=== PATIENT | male | born 1955 | race Caucasian/White ===

== ENCOUNTER → 2019-10-16 20:32 | Outpatient (CLI) | payer MEDICARE, OTHER, SELFPAY | PROVIDERS: Family Provider Nurse Practitioner Primary Care; PCP Nurse Practitioner Primary Care; Referring Provider Nurse Practitioner Family; Visit Provider Nurse Practitioner Family | DX: G47.33 Obstructive sleep apnea (adult) (pediatric) (principal) | CPT/HCPCS: 95811 ==

== ENCOUNTER → 2019-10-24 15:53 | Outpatient (CLI) | payer MEDICARE, OTHER, SELFPAY ==
[2017-02-20 20:55] VITALS: BMI 29.9
[2019-10-24 16:15] LABS: Absolute Lymphocyte Count 1.87 X10^3/uL (0.83-4.51); Absolute Neutrophil Count 4.2 X10^3/uL (2.0-7.7); Basophil# 0.04 X10^3/uL; Basophil% 0.6 % (0-1); Eosinophils% 2.9 % (0-5); Hematocrit 53.2 % (40-54); Hemoglobin 17.3 g/dL (13.0-16.5); Lymphocyte # 1.87 X10^3/ul (4.0); Lymphocyte % 27.3 % (19-41); Mean Corp Hgb Conc 32.5 g/dL (32-36); Mean Corpuscular Hgb 29.8 pg (27.0-32.0); Mean Corpuscular Volume 91.7 fL (80-94); Mean Platelet Vol. 9.2 fl (6.2-12.0); Monocyte# 0.56 X10^3/uL; Monocyte% 8.2 % (0-10); NRBC Flagged by Analyzer 0 % (0-5); Neutrophil # 4.15 X10^3/uL (2.7-7.7); Neutrophil % 60.7 % (47-70); Platelet Count 236 K/mm3 (150-450); RBC Distribution Width SD 47.3 fl (35.1-43.9); White Blood Count 6.8 K/mm3 (4.4-11.0)
== END ==
PROVIDERS: Family Provider Nurse Practitioner Primary Care; PCP Nurse Practitioner Primary Care; Referring Provider Nurse Practitioner Family; Visit Provider Nurse Practitioner Family
DX: R71.8 Other abnormality of red blood cells (principal); D58.2 Other hemoglobinopathies
CPT/HCPCS: 36415; 85025

== ENCOUNTER 2021-03-03 05:25 | Day surgery (SDC) | payer MEDICARE, SELFPAY ==
[2021-03-03] VITALS (8 sets, daily range): BP systolic 119–195; BP diastolic 74–105; PULSE 52–61; RESP 16; TEMP 35.9–36.4; O2SAT 94–100; BMI 28.8
[2021-03-03] MEDS: Lactated Ringers 1,000 ML 100 ML IV (06:01)
--- NOTE | 2021-03-03 06:03 | PCM.HP.STD ---
Problem List (1) Personal history of colonic polyps Status: Acute History of Present Illness Date of Admission: 03/03/21 The patient is a 66 year old M who has had a personal history of colon polyps. August 2015 and a colonoscopy and 3 polyps removed. He had a hemorrhoidectomy at that time to. He presents now for follow-up colonoscopy. He states that he has not had any symptoms. No abdominal pain. He states that he has had only one episode recently of what he thought was some bright red blood in toilet. He attributes this to hemorrhoids. He actually in 2014 had bleeding from hemorrhoids had a hemorrhoidectomy done by Dr. Rebolledo and then actually had a postoperative bleed. The patient states he is not on any anticoagulants. He has his states that he is well. He states that he is not had COVID-19 of which she is aware Past Medical History Allergies Penicillins [PCN] Allergy (Verified 03/03/21 05:52) Anaphylaxis codeine Adverse Reaction (Verified 03/03/21 05:52) Nausea Home Medications: Ambulatory Orders Medication Instructions Recorded Multivitamin [Daily Multiple 1 each PO BID 09/01/16 Vitamin] Smoking Status: Never smoker Tobacco Use: Non-smoker Review of Systems Constitutional: Denies: Fever Cardiovascular: Denies: Chest Pain Respiratory: Denies: Cough, Shortness of breath at rest Gastrointestinal: Denies: Abdominal Pain, Hematochezia, Melena Endocrine: Denies: Change in Body Habitus VTE Information - Inpt Only VTE Present on Admission: No - Physical Exam Vitals/I&O's: Vital Signs Temp Pulse Resp BP Pulse Ox 97.5 F L 60 16 161/79 H 100 03/03/21 05:53 03/03/21 05:53 03/03/21 05:53 03/03/21 05:53 03/03/21 05:53 Oxygen Delivery Method Room Air Weight: 178 lb 12.718 oz Body Mass Index (BMI) 28.8 General: Alert, Oriented x3, Cooperative, No apparent distress HEENT: Atraumatic Oral: Moist Mucosa Neck: Supple Lungs: Clear to auscultation, Normal air movement Cardiovascular: Regular rate, Regular Rhythm Abdomen: Soft, Non Tender Extremities: No Calf Tenderness Psych/Mental Status: Normal Affect Microbiology Past 72 Hours 03/02/21 08:45 Interface Orders SARS-CoV-2 Antigen (Rapid) - Final Current Medications Lactated Ringer's () 1,000 mls @ 100 mls/hr IV .Q10H TIKI Last Admin: 03/03/21 06:01 Dose: 100 mls/hr Documented by: Assessment/Plan All Active Problems Personal history of colonic polyps (Acute) I recommended the patient a colonoscopy with possible biopsy or polypectomy is indicated. He is aware of the technique, benefit, risk, alternatives. He has had an opportunity to ask and have questions answered. He presents via open access today. We will proceed as noted. Boom Hawk M.D., F.A.C.S.
[2021-03-03] MEDS: Midazolam 5 MG/ML Syringe (06:22)
--- NOTE | 2021-03-03 06:30 | COLBX_PTH ---
PATIENT: MAX LARSON LOC: EN U#:[id number] AGE/SX: 66/M ROOM: RE03/03/[address]: Dr. Boom Hawk MD : 1955 BED: DIS: 03/03/2021 SPEC #: [id number] RECD: 03/03/21 10:36 STATUS: FROY REKapil #: [id number] ROSA: 03/03/21 06:[address]: Boom Hawk DEPT: SURGICAL PATHOLOGY RECD BY: Lashae Tsang ENTERED: 03/03/21 12:59 SP TYPE: COLON BX OTHR DR: Dr. Obed Funez MD Tissues: Cecum, NOS Procedures: Surgery Specimen Level IV HEADER OPERATION: Colonoscopy - open access (MOD) PRE-OP DIAGNOSIS: History colonic polyps TISSUE SUBMITTED: Cecum polyp MICROSCOPIC DIAGNOSIS Cecal polyp, biopsy: Fragments of tubular adenoma. AM:huan 03/04/2021 MICROSCOPIC DESCRIPTION Slides are reviewed. GROSS DESCRIPTION Received in fixative is one container labeled with the patient's name and designated cecal polyp. The specimen consists of one irregular fragment of light montes soft tissue that measures 0.5 x 0.2 x 0.1 cm. The specimen is totally submitted in one cassette. / AM:huan 03/03/21 TC:5 CPT: 12423
--- NOTE | 2021-03-03 06:45 | OP.COLON_ITS ---
Patient Name: Bar Maza Procedure Date: 03/03/2021 6:16 AM Date of : 1955 Age: 66 Procedure: Colonoscopy Indications: High risk colon cancer surveillance: Personal history of colonic polyps Providers: Boom Hawk MD Referring MD: Boom Hawk MD Medicines: Midazolam 3 mg IV, Meperidine 100 mg IV Patient Profile: Last Colonoscopy: August 2015. Complications: No immediate complications. Procedure: Pre-Anesthesia Assessment: - Prior to the procedure, a History and Physical was performed, and patient medications and allergies were reviewed. The patient's tolerance of previous anesthesia was also reviewed. The risks and benefits of the procedure and the sedation options and risks were discussed with the patient. All questions were answered, and informed consent was obtained. Prior Anticoagulants: The patient has taken no previous anticoagulant or antiplatelet agents. ASA Grade Assessment: II - A patient with mild systemic disease. After reviewing the risks and benefits, the patient was deemed in satisfactory condition to undergo the procedure. After I obtained informed consent, the scope was passed under direct vision. Throughout the procedure, the patient's blood pressure, pulse, and oxygen saturations were monitored continuously. The Colonoscope was introduced through the anus and advanced to the cecum, identified by appendiceal orifice and ileocecal valve. The colonoscopy was performed without difficulty. The patient tolerated the procedure well. The quality of the bowel preparation was good. The ileocecal valve and the appendiceal orifice were photographed. Moderate Sedation: Moderate (conscious) sedation was personally administered by the endoscopist. The following parameters were monitored: oxygen saturation, heart rate, blood pressure, and response to care. Total physician intraservice time was 15 minutes. Scope In: 6:26:30 AM Scope Withdrawal Time 0 hours 10 minutes 33 seconds Scope Out: 6:40:04 AM Total Procedure Duration Time 0 hours 13 minutes 34 seconds Findings: The digital rectal exam findings include enlarged prostate. A 6 mm polyp was found in the cecum. The polyp was sessile. The polyp was removed with a hot snare. Resection and retrieval were complete. Multiple diverticula were found in the entire colon. The exam was otherwise without abnormality. Impression: - Enlarged prostate found on digital rectal exam. - One 6 mm polyp in the cecum, removed with a hot snare. Resected and retrieved. - Diverticulosis in the entire examined colon. - The examination was otherwise normal. Recommendation: - Discharge patient to home. - Resume previous diet. - Continue present medications. - Repeat colonoscopy in 5 years for surveillance. - Telephone my office for pathology results in 1 week. Procedure Code(s): --- Professional --- 87635, Colonoscopy, flexible; with removal of tumor(s), polyp(s), or other lesion(s) by snare technique 08356, 59, Moderate sedation services provided by the same physician or other qualified health foster care social worker performing the diagnostic or therapeutic service that the sedation supports, requiring the presence of an independent trained observer to assist in the monitoring of the patient's level of consciousness and physiological status; initial 15 minutes of intraservice time, patient age 5 years or older Diagnosis Code(s): --- Professional --- Z86.010, Personal history of colonic polyps D12.0, Benign neoplasm of cecum N40.0, Benign prostatic hyperplasia without lower urinary tract symptoms K57.30, Diverticulosis of large intestine without perforation or abscess without bleeding CPT copyright 2017 [employer]. All rights reserved. The codes documented in this report are preliminary and upon recreation attendant supervisor review may be revised to meet current compliance requirements. Boom Hawk MD 03/03/2021 6:45:01 AM This report has been signed electronically. Number of Addenda: 0 Note Initiated On: 03/03/2021 6:16 AM
--- NOTE | 2021-03-03 06:45 | OP.CCLET_ITS ---
03/03/2021 Kailyn Chicas Re : Colonoscopy procedure for Bar Ulloar Juan Francisco This procedure was performed on Wednesday, March 03, 2021. My impressions and recommendations are as follows: Impressions : - Enlarged prostate found on digital rectal exam. - One 6 mm polyp in the cecum, removed with a hot snare. Resected and retrieved. - Diverticulosis in the entire examined colon. - The examination was otherwise normal. Recommendations : - Discharge patient to home. - Resume previous diet. - Continue present medications. - Repeat colonoscopy in 5 years for surveillance. - Telephone my office for pathology results in 1 week. My findings are described in the full procedure note, which is enclosed. If I can be of further assistance, please feel free to contact me at Doctor phone number(s): Work: . Sincerely, Boom Hawk MD 03/03/2021 6:45:01 AM This report has been signed electronically.
== END 2021-03-03 07:59 | disposition home or self-care (01) ==
LOC: EN 05:26 → AC 05:27
PROVIDERS: PCP Internal Medicine; Referring Provider Surgery; Visit Provider Surgery
PROC: 0DJD8ZZ Inspection of Lower Intestinal Tract, Via Natural or Artificial Opening Endoscopic (ICD-10-PCS; CPT 45378; principal; 2021-03-03 06:25)
DX: D12.0 Benign neoplasm of cecum (principal); K57.50 Diverticulosis of both small and large intestine without perforation or abscess without bleeding; N40.0 Benign prostatic hyperplasia without lower urinary tract symptoms; Z86.010 Personal history of colon polyps
CPT/HCPCS: 45385; 87426; 88305; 99152; 99153; C9803; J7120

== ENCOUNTER 2021-11-26 15:20 | Outpatient (CLI) | payer MEDICARE, SELFPAY ==
[2021-11-26 15:37] VITALS: BP 142/82; PULSE 109; RESP 18; TEMP 36.6; O2SAT 97; BMI 30.4
[2021-11-26] MEDS: 0.9% Saline Lock 10 ML Syringe IV (15:42)
[2021-11-26 16:05] VITALS: BP 149/75; PULSE 51; RESP 16; TEMP 36.6; O2SAT 98
[2021-11-26 16:55] VITALS: BP 174/85; PULSE 52; RESP 16; TEMP 36.8; O2SAT 97
== END 2021-11-26 23:59 | disposition home or self-care (01) ==
LOC: MS3OUT 15:20 → MS3 15:21
PROVIDERS: PCP Internal Medicine; Referring Provider Nurse Practitioner Adult Health; Visit Provider Nurse Practitioner Adult Health
DX: Z23 Encounter for immunization (principal); U07.1 COVID-19
CPT/HCPCS: J7050; M0243; A4216; Q0244

== ENCOUNTER 2022-04-10 20:24 | Outpatient (CLI) | payer MEDICARE, OTHER, SELFPAY ==
[2022-04-10 20:25] VITALS: BP 187/82; PULSE 75; RESP 75; TEMP 36.4; O2SAT 99; BMI 30.7
[2022-04-10 21:16] VITALS: PULSE 16
--- NOTE | 2022-04-10 22:06 | ED.VIS.LOWEX ---
HPI History of Present Illness HPI Narrative: Patient presents with pain and swelling in his right thigh that began this morning. Patient states he knows he has varicose veins in his right lower extremity. Patient states they are normally soft. Patient states today he noticed they were harder and noncompressible. Patient is concerned about blood clot in his varicose veins. Patient describes his pain as aching. Patient states it is worse whenever he sits up and better whenever he lays flat. Patient denies any paresthesias or weakness. Patient denies any trauma or injury. Chief Complaint: Lower Extremity Injury Onset/Context/Timing Onset: Today Context: Gradual Onset Timing: Continuous Quality of Pain: Aching Location: Right thigh Worsened by: Sitting up Relieved by: Laying flat Associated Symptoms Associated Symptoms: Negative for Parasthesia, Weakness and Loss of Funtion PFSH [facility] Medical History HTN (hypertension) Home Medications multivitamin [Daily Multiple Vitamin] 1 ea PO BID 09/01/16 [History Last Taken 02/27/21] hydrochlorothiazide 12.5 mg PO DAILY 11/26/21 [History Last Taken Unknown] losartan 100 mg PO DAILY 11/26/21 [History Last Taken Unknown] Allergy/AdvReac Type Severity Reaction Status Date / Time Penicillins [PCN] Allergy Anaphylaxis Verified 04/10/22 20:25 codeine AdvReac Nausea Verified 04/10/22 20:25 Social History Smoking Status: Never smoker ROS ROS ED Constitutional Constitutional ED: Denies chills or fever(s) Eyes Eyes: Denies blurry vision or change in vision ENT ENT ED: Denies rhinorrhea or sore throat Cardiovascular Cardiovascular: Denies chest pain or palpitations Respiratory/Chest Respiratory/Chest: Denies cough or dyspnea Gastrointestinal Gastrointestinal: Denies nausea or vomiting Genitourinary Genitourinary ED: Denies dysuria or hematuria Musculoskeletal Musculoskeletal: Denies back pain or neck pain Integumentary Denies abscess or rash Neurologic Neurologic: Denies headache(s) or weakness Allergic/Immunologic Allergic/Immunologic ED: Denies mouth swelling or urticaria EXAM Physical Exam Const Vital Signs: 04/10/22 20:25 04/10/22 21:16 Temperature 97.5 F L Temperature Source Temporal Pulse Rate 75 16 L Respiratory Rate 75 H Blood Pressure 187/82 H Blood Pressure Mean 117 Pulse Ox 99 Oxygen Delivery Method Room Air Positive well nourished and well developed General Appearance ED: well developed and NAD HEENT Reports moist mucous membranes Neck full ROM Extremity Extremity Narrative: There is tender there is some varicosities of the medial aspect of the right thigh. There is no erythema. They are not compressible with palpation. There is no calf tenderness. There is no lower leg edema. Pedal pulses are equal bilaterally. There is full range of motion. Strength is 5/5 bilaterally in the lower extremities. There are no sensory deficits. Neuro oriented x3, CN's II-XII intact bilaterally, moves all extremities and no sensory deficits noted Sensorium / Orientation: alert Motor Exam: strength 5/5 throughout Psych mental status grossly normal MDM MDM MDM Narrative Medical decision making narrative: Venous duplex of the lower extremity is unavailable at this time. Patient was given a dose of Lovenox here. Patient was ordered an outpatient venous duplex to be done tomorrow morning as an outpatient. Patient was instructed return if worse in any way. Patient understood and was agreeable with the plan. All questions were answered. Discharge Plan Triage Chief Complaint: Lower Extremity Injury ED Provider: Hitesh Marti Dx/Rx/DC Orders Clinical Impression: Pain in right thigh Instructions: ED Patellar Dislocation/Subluxation Prescriptions: No Action multivitamin [Daily Multiple] 1 EACH tablet 1 ea PO BID RF: 0 hydrochlorothiazide 12.5 mg capsule 12.5 mg PO DAILY RF: 0 losartan 100 mg tablet 100 mg PO DAILY RF: 0 Other Ambulatory Orders: ON-CALL NEEDED: Notify [facility] - Doppler Study Ordered (Stat) Location: None Selected Ordered By: Dr. Hitesh Marti Venous Duplex US, Unilateral (Routine) Facility: [facility] - Location: [facility] Ordered By: Dr. Hitesh Marti Primary Care Provider: Obed Funez Referrals: Obed Funez MD [Primary Care Provider] - 3-5 Days Disposition Disposition: Home, Self Care
[2022-04-10 22:22] VITALS: BP 173/83; PULSE 49; RESP 16; O2SAT 97
[2022-04-10] MEDS: Enoxaparin 100 MG/ML Syringe 90 MG SC (22:31)
--- NOTE | 2022-04-11 13:03 | VDLE_ITS ---
Reason For Study: pain RIGHT CFV is compressible, spontaneous, phasic, competent and demonstrates normal augmentation. FV is compressible, spontaneous, phasic, competent and demonstrates normal augmentation. POP V is compressible, spontaneous, phasic, competent and demonstrates normal augmentation. T/P Trunk is compressible. PTV is compressible. RT PerV is compressible. GSV is dilated and noncompressible from the ankle to the mid thigh. Varicose veins are dilated and noncompressible in the thigh. Procedure This is a venous duplex using B-mode, color flow and spectral Doppler. Exam performed in department. The exam was abbreviated due to the COVID 19 protocol. The exam was diagnostic. Pt taken to the ED. VL/Venous Duplex US, Unilateral Interpretation Summary Deep veins of the right lower extremity are patent and compressible segmentally . There is no evidence of right lower extremity deep vein thrombosis. Valvular competence penny ears intact within the proximal deep venous system on the right . Acute superficial thrombophlebit is is noted in the right great saphenous vein from the right ankle to the mid-thigh. Acute superfi cial thrombophlebitis is noted involving varicosities in the right thigh. Ordering Physician: Hitesh Marti Performed By: Luciano Wall RVT
== END 2022-04-11 | disposition home or self-care (01) ==
LOC: ED 22:11 → RAD 04-11 12:50
PROVIDERS: Emergency Provider Emergency Medicine; PCP Internal Medicine; Visit Provider Emergency Medicine
DX: M79.651 Pain in right thigh (principal); I10 Essential (primary) hypertension; M79.89 Other specified soft tissue disorders
CPT/HCPCS: 93971; 99283

== ENCOUNTER 2022-04-11 13:23 | Emergency (ER) | payer MEDICARE, OTHER, SELFPAY ==
[2022-04-11 13:25] VITALS: BP 176/84; PULSE 51; RESP 17; TEMP 36.7; O2SAT 97; BMI 30.7
--- NOTE | 2022-04-11 13:58 | ED.VIS.LOWEX ---
HPI History of Present Illness HPI Narrative: Patient presents with right leg pain that became worse yesterday. Patient was seen here in the emergency department last night. Patient had outpatient venous duplex ordered at that time. Patient had this done today. The venous duplex showed a DVT in the greater saphenous vein from the ankle to the mid thigh. There is also varicose veins that are dilated and noncompressible in the thigh. Patient denies any paresthesias or weakness. Patient denies any new pain or injury. Chief Complaint: Lower Extremity Injury Informant: patient Onset/Context/Timing Onset: Days Context: Gradual Onset Timing: Continuous Quality of Pain: Aching Location: Right thigh Worsened by: Palpation Relieved by: Nothing Associated Symptoms Associated Symptoms: Negative for Parasthesia, Weakness and Loss of Funtion PFSH PFSH Medical History HTN (hypertension) Home Medications multivitamin [Daily Multiple Vitamin] 1 ea PO BID 09/01/16 [History Last Taken 02/27/21] hydrochlorothiazide 12.5 mg PO DAILY 11/26/21 [History Last Taken Unknown] losartan 100 mg PO DAILY 11/26/21 [History Last Taken Unknown] apixaban [Eliquis] 5 mg PO BID #74 tab 04/11/22 [Rx Last Taken Unknown] Allergy/AdvReac Type Severity Reaction Status Date / Time Penicillins [PCN] Allergy Anaphylaxis Verified 04/11/22 13:24 codeine AdvReac Nausea Verified 04/11/22 13:24 Social History Smoking Status: Never smoker ROS ROS ED Constitutional Constitutional ED: Denies chills or fever(s) Eyes Eyes: Denies blurry vision or change in vision ENT ENT ED: Denies rhinorrhea or sore throat Cardiovascular Cardiovascular: Denies chest pain or palpitations Respiratory/Chest Respiratory/Chest: Denies cough or dyspnea Gastrointestinal Gastrointestinal: Denies nausea or vomiting Genitourinary Genitourinary ED: Denies dysuria or hematuria Musculoskeletal Musculoskeletal: Denies back pain or neck pain Integumentary Denies abscess or rash Neurologic Neurologic: Denies headache(s) or weakness Allergic/Immunologic Allergic/Immunologic ED: Denies mouth swelling or urticaria EXAM Physical Exam Const Vital Signs: 04/11/22 13:25 Temperature 98.0 F Temperature Source Oral Pulse Rate 51 L Respiratory Rate 17 Blood Pressure 176/84 H Blood Pressure Mean 114 Pulse Ox 97 Oxygen Delivery Method Room Air Positive well nourished and well developed General Appearance ED: well developed and NAD HEENT Reports moist mucous membranes Neck full ROM Extremity Extremity Narrative: There is mild tenderness over the medial aspect of the right thigh. There is some mild edema. There is no deformity noted. There is good range of motion of the right hip, knee, and ankle. There is no calf tenderness. Posterior tibial pulses are equal bilateral. Sensation was intact to light touch bilaterally in the lower extremities. Strength is 5/5 bilaterally in the lower extremities. Patient was able to ambulate without difficulty. Neuro oriented x3, CN's II-XII intact bilaterally, moves all extremities and no sensory deficits noted Sensorium / Orientation: alert Motor Exam: strength 5/5 throughout Psych mental status grossly normal MDM MDM MDM Narrative Medical decision making narrative: Patient was given a dose of Eliquis here. Patient given a prescription for Eliquis. Patient was instructed to elevate the right lower extremity. Patient was instructed to follow-up with his primary care physician in 5 to 7 days. Patient understood and was agreeable with the plan. All questions were answered. Discharge Plan Triage Chief Complaint: Lower Extremity Injury ED Provider: Hitesh Marti Dx/Rx/DC Orders Clinical Impression: Deep vein thrombosis (DVT) of right lower extremity, Pain in right thigh Instructions: ED Deep Vein Thrombosis (DVT) Prescriptions: New Eliquis 5 MG tablet 5 mg PO BID Qty: 74 RF: 0 No Action multivitamin [Daily Multiple] 1 EACH tablet 1 ea PO BID RF: 0 hydrochlorothiazide 12.5 mg capsule 12.5 mg PO DAILY RF: 0 losartan 100 mg tablet 100 mg PO DAILY RF: 0 Primary Care Provider: Obed Funez Referrals: Obed Funez MD [Primary Care Provider] - Disposition Disposition: Home, Self Care
[2022-04-11] MEDS: APIXABAN 5 MG TABLET 10 MG PO (14:10)
== END 2022-04-11 14:13 | disposition home or self-care (01) ==
PROVIDERS: Emergency Provider Emergency Medicine; PCP Internal Medicine; Visit Provider Emergency Medicine
DX: I82.401 Acute embolism and thrombosis of unspecified deep veins of right lower extremity (principal); I10 Essential (primary) hypertension; I82.819 Embolism and thrombosis of superficial veins of unspecified lower extremity; M79.661 Pain in right lower leg
CPT/HCPCS: 93971; 99283

== ENCOUNTER 2022-10-27 13:07 | Emergency (ER) | payer MEDICARE, OTHER, SELFPAY ==
[2022-10-27 13:07] VITALS: BP 140/71; PULSE 64; RESP 16; TEMP 36.6; O2SAT 98; BMI 29.8
--- NOTE | 2022-10-27 14:13 | VDLE_ITS ---
Reason For Study: Pain Procedure LEFT This is a venous duplex using B-mode, color GSV is normal. flow and spectral Doppler. CFV is compressible, spontaneous, phasic, Exam performed portable in ED. competent, and demonstrates normal A preliminary report was called and/or faxed augmentation. to ED RN. FV is compressible, spontaneous, phasic, competent and demonstrates normal augmentation. POP V is compressible, spontaneous, phasic, competent and demonstrates normal augmentation. T/P Trunk is compressible. PTV is compressible. LT PerV is compressible. VL/Venous Duplex US, Unilateral Interpretation Summary There is no evidence of left lower extremity deep vein thrombosis. Left great s aphenous vein appears patent and compressible segmentally. Ordering Physician: Provider, Ed Physician Referring Physician: MD Surendra Funez Performed By: Tammy Mayer RVT
--- NOTE | 2022-10-27 15:25 | EDS_ITS ---
HPI History of Present Illness Chief Complaint: Lower Extremity Injury Informant: patient Onset/Context/Timing Onset: Weeks Narrative Narrative: Presents for evaluation left knee injury with left calf pain 2 weeks ago. Was pulling and moving objects when he went backwards rolling. He thinks he twisted his knee. However persistent symptoms would come and go. He started taking aspirin last 2 days for concerns for possible blood clot. He is able to ambulate. No other injuries. [facility] Medical History HTN (hypertension) Home Medications multivitamin (Daily Multiple tablet) 1 ea PO BID 09/01/16 [History Last Taken 02/27/21] hydrochlorothiazide 12.5 mg capsule 12.5 mg PO DAILY 11/26/21 [History Last Taken Unknown] losartan 100 mg tablet 100 mg PO DAILY 11/26/21 [History Last Taken Unknown] apixaban 5 mg tablet (Eliquis) 5 mg PO BID #74 tabs 04/11/22 [Rx Last Taken Unknown] Allergy/AdvReac Type Severity Reaction Status Date / Time Penicillins [PCN] Allergy Anaphylaxis Verified 10/27/22 13:09 codeine AdvReac Nausea Verified 10/27/22 13:09 Social History Smoking Status: Never smoker ROS ROS ED Constitutional Constitutional ED: Denies chills, fever(s) or sweats Eyes Eyes: Denies change in vision ENT ENT ED: Denies dysphagia or sore throat Cardiovascular Cardiovascular: Denies chest pain, leg edema, palpitations or racing heartbeat Respiratory/Chest Respiratory/Chest: Denies cough, dyspnea or dyspnea on exertion Gastrointestinal Gastrointestinal: Denies abdominal pain, diarrhea, nausea or vomiting Genitourinary Genitourinary ED: Denies dysuria, hematuria or urinary frequency Musculoskeletal Musculoskeletal: Reports extremity pain and other Details: Left knee, left calf pain ; Denies back pain or neck pain Integumentary Denies rash or wounds Neurologic Neurologic: Denies headache(s), paresthesias or weakness EXAM Physical Exam Const Vital Signs: 10/27/22 13:07 10/27/22 16:11 Temperature 98 F Temperature Source Temporal Pulse Rate 64 Respiratory Rate 16 17 Blood Pressure 140/71 H 130/74 H Blood Pressure Mean 94 92 Pulse Ox 98 99 Oxygen Delivery Method Room Air Room Air Positive well nourished and well developed General Appearance ED: well developed and NAD HEENT Reports moist mucous membranes normocephalic and atraumatic Eyes PERRL, EOMs intact bilaterally and conjunctivae normal General Eye ED: Yes normal appearance of both eyes Neck no lymphadenopathy and supple General: Negative for tenderness Chest Wall Chest: Negative for tenderness Resp normal respiratory effort and normal air movement Effort and Inspection: symmetric chest movement; Negative for respiratory distress Cardio regular rate, regular rhythm and no murmurs Peripheral Pulses: pulses 2+ throughout GI normal to inspection, nondistended, normoactive bowel sounds and non-tender Palpation: Negative for guarding or rebound tenderness present Back/Spine no CVA tenderness and no thoracic nor lumbar tenderness Extremity Extremity Narrative: Left lower extremity: Negative logroll. Knee extensor mechanism intact. Negative varus and valgus stress test. Negative Obey's. No patellar tenderness. There is tender palpation anterior proximal tibia. There is tenderness in the mid posterior calf. No swelling. No ankle pain. Neuro vas intact distally. General Extremety ED: Negative for edema or tenderness General Extremity: Negative for edema Neuro oriented x3 and no sensory deficits noted Sensorium / Orientation: awake and alert Skin no rashes or lesions noted and no wounds MDM MDM MDM Narrative Medical decision making narrative: DVT studies left leg negative for DVT. Obtain 4 view x-rays of left knee due to proximal tibial pain, was reviewed by myself and read by radiology which was negative. He is reassured. Monitor symptoms discussed if persistent symptoms after a week follow-up with PCP for reimaging. He is able ambulate. Declines any medications in the ED. All questions were answered. Radiography Diagnostic Testing: Clinical Impression(s) from Imaging Studies Venous Doppler Study 10/27/22 14:13 Interpretation Summary There is no evidence of left lower extremity deep vein thrombosis. Left great saphenous vein appears patent and compressible segmentally. Ordering Physician: Provider, Ed Physician Referring Physician: MD Surendra Funez Performed By: Tammy Mayer RVT Knee X-Ray 10/27/22 15:40 IMPRESSION: Negative left knee x-rays. Electronically Signed: Luciano Monk MD at 16:53 EST , Discharge Plan Triage Chief Complaint: Lower Extremity Injury ED Provider: Jesus Knox Dx/Rx/DC Orders Clinical Impression: Strain of left calf muscle, Contusion of knee, left Instructions: ED Soft Tissue Contusion, ED Muscle Strain, Extremity Prescriptions: No Action multivitamin [Daily Multiple] 1 EACH tablet 1 ea PO BID hydrochlorothiazide 12.5 mg capsule 12.5 mg PO DAILY losartan 100 mg tablet 100 mg PO DAILY Label Comments: take 1 tablet by mouth once daily Eliquis 5 MG tablet 5 mg PO BID Qty: 74 0RF Rx Instructions: 10 mg twice a day for the first week. Then 5 mg twice a day. Primary Care Provider: Obed Funez Referrals: Obed Funez MD [Primary Care Provider] - 1 Week if not improving Activity Restrictions/Additional Instructions: Negative DVT study of her left lower leg. Left knee x-ray negative for any fracture. Tylenol or ibuprofen every 6 hours as needed. Follow-up with your doctor in 1 week if symptoms persist. Disposition Disposition: Home, Self Care Discharge Date/Time: 10/27/22 16:11
--- NOTE | 2022-10-27 15:40 | RAD_ITS ---
EXAM: XR LEFT KNEE COMPLETE, 4 OR MORE VIEWS CLINICAL INDICATION: injury TECHNIQUE: Four or more views of the left knee. This report was created using [employer] report generation technology. COMPARISON: None. FINDINGS: BONES/JOINTS: Unremarkable. No acute fracture. No subluxation. Normal alignment. Preservation of the joint space. No sclerotic or destructive changes observed. SOFT TISSUES: Unremarkable. No soft tissue swelling or gas. No radiopaque foreign body. RAD/Knee 4 or More Views IMPRESSION: Negative left knee x-rays. Electronically Signed: Luciano Monk MD at 16:53 EST ,
[2022-10-27 16:11] VITALS: BP 130/74; RESP 17; O2SAT 99
== END 2022-10-27 16:11 | disposition home or self-care (01) ==
PROVIDERS: Emergency Provider Emergency Medicine; PCP Internal Medicine; Visit Provider Emergency Medicine
DX: S80.02XA Contusion of left knee, initial encounter (principal); S86.112A Strain of other muscle(s) and tendon(s) of posterior muscle group at lower leg level, left leg, initial encounter; I10 Essential (primary) hypertension; M79.605 Pain in left leg; X50.1XXA Overexertion from prolonged static or awkward postures, initial encounter
CPT/HCPCS: 99281; 73564; 93971; 99282

== ENCOUNTER 2024-02-03 11:19 | Emergency (ER) | payer MEDICARE, OTHER, SELFPAY ==
[2024-02-03 11:19] VITALS: BP 139/79; BP 154/75; PULSE 64; RESP 14; RESP 16; TEMP 36.7; TEMP 36.9; O2SAT 95; O2SAT 98; BMI 31.8
--- NOTE | 2024-02-03 11:32 | RAD_ITS ---
STUDY: X-RAY CHEST REASON FOR EXAM: Male, 68 years old. Chest pain TECHNIQUE: Single AP portable view of the chest. COMPARISON: Comparison is made with prior study February 20, 2017. FINDINGS: EKG electrodes are seen. The lungs are clear and expanded. There is no demonstrated pleural abnormality. Normal size heart. Normal mediastinum and bobby. Normal visualized pulmonary arteries. There is atherosclerotic tortuosity of the aortic arch and descending thoracic aorta. There are degenerative changes of the visualized thoracic spine. Status post right reverse shoulder replacement. There is no demonstrated abnormality of the visualized soft tissue structures of the upper abdomen. RAD/Chest 1 View (Portable) IMPRESSION: No acute abnormality is seen. Electronically Signed: Hradeep Jacobs MD at 12:25 EDT ,
--- NOTE | 2024-02-03 11:34 | EX.ED.DYSGE1 ---
HPI <ANJEL Medeiros - Last Filed: 02/03/24 13:20> History of Present Illness Chief Complaint: Chest Pain Narrative Narrative: Patient is a 68-year-old male with history of CAD, hypertension, history of blood clots secondary to surgery who is on Eliquis however no longer takes Eliquis. Patient had a cardiac cath in October 2023, patient in the posterior part of the heart said that he had 3 blockages 1 was at 70% ,80% and at 90%. They have been keeping an eye on it, and they told him to come to the emergency department if he develops any chest pain. Patient states last evening while he was asleep, he woke up at 12 AM, 2 AM and 4 AM. Patient states when he laid on his left side the pain got much more severe. Patient is here for evaluation. Patient states that his pain is an aching sensation to the left side of his chest as a 2. He denies any recent fever or chills, denies any cough, denies any infectious-like symptoms. PFSH <ANJEL Medeiros - Last Filed: 02/03/24 13:20> [facility] Medical History HTN (hypertension) Home Medications multivitamin (Daily Multiple tablet) 1 ea PO BID 09/01/16 [History Last Taken 02/27/21] hydrochlorothiazide 12.5 mg capsule 12.5 mg PO DAILY 11/26/21 [History Last Taken Unknown] losartan 100 mg tablet 100 mg PO DAILY 11/26/21 [History Last Taken Unknown] apixaban 5 mg tablet (Eliquis) 5 mg PO BID #74 tabs 04/11/22 [Rx Last Taken Unknown] Allergy/AdvReac Type Severity Reaction Status Date / Time Penicillins [PCN] Allergy Anaphylaxis Verified 02/03/24 11:19 codeine AdvReac Nausea Verified 02/03/24 11:19 Social History Smoking Status: Never smoker ROS <ANJEL Medeiros - Last Filed: 02/03/24 13:20> ROS ED ROS Narrative Constitutional: Negative for fever, chills, weight loss, weakness Eyes: Negative for vision loss, vision change, double vision ENT: Negative for any sore throat, ear pain, congestion Cardiovascular: Negative for any palpitations. Positive chest pain, chest tightness Respiratory: Negative for any cough, sputum production, hemoptysis, dyspnea, dyspnea on exertion, orthopnea Gastrointestinal: Negative for any abdominal pain, nausea, vomiting, diarrhea, constipation, blood in stool, blood in vomit : Negative for any urinary frequency, dysuria, retention, blood in urine Muscle skeletal: Negative for any neck pain, back pain. Positive for left arm pain Neurological: Negative for any headache, syncope, dizziness Skin: Negative for any rashes, itching, abrasions, lacerations Psychiatric: Negative for any depression, anxiety, stress, suicidal ideation, homicidal ideation Hematologic: Negative for any excessive bruising, easy bleeding EXAM <ANJEL Medeiros - Last Filed: 02/03/24 13:20> Physical Exam Narrative Exam Narrative: Vital signs reviewed. Patient appears to be in no obvious distress vital signs are stable. Patient's chest pain is at a 2 out of 10 at this time. HEET: Head normocephalic atraumatic, TMs clear bilaterally. Posterior pharynx is clear, moist mucous membranes. Nares clear bilaterally. Neck: Supple with no lymphadenopathy or tenderness. No signs of meningismus. Cardiac: Regular rate and rhythm no murmurs gallops or rubs, equal peripheral pulses bilaterally. Respiratory: Lungs clear to auscultation bilaterally. No chest tenderness. Abdomen: Soft, nontender, nondistended. No abdominal bruit or pulsatile masses. No hepatosplenomegaly Extremities: No peripheral edema, no signs of gross trauma or deformity. Active full range of motion of all extremities. Neuro: Cranial nerves II through XII intact, no focal neurological deficits. Skin: Clean dry and intact with no rash, purpura, petechiae, vesicles or pustules. Backs/flank: No CVA tenderness, no midline spinal tenderness, no deformity. Psych: Normal mood and affect. No SI, HI or acute psychosis. Const Vital Signs: 02/03/24 11:19 02/03/24 11:19 02/03/24 11:34 Temperature 98.4 F 98.1 F Temperature Source Oral Temporal Pulse Rate 64 64 Respiratory Rate 16 14 Respiratory Effort Normal Blood Pressure 139/79 H 154/75 H Blood Pressure Mean 99 101 Pulse Ox 95 98 Oxygen Delivery Method Room Air Room Air 02/03/24 11:44 Temperature Temperature Source Pulse Rate 64 Respiratory Rate Respiratory Effort Blood Pressure 116/65 Blood Pressure Mean Pulse Ox Oxygen Delivery Method Positive well nourished and well developed General Appearance ED: well developed <Dr. Jorge Alberto Cuevas DO - Last Filed: 02/03/24 15:01> Physical Exam Const Vital Signs: 02/03/24 11:19 02/03/24 11:19 02/03/24 11:34 Temperature 98.4 F 98.1 F Temperature Source Oral Temporal Pulse Rate 64 64 Respiratory Rate 16 14 Respiratory Effort Normal Blood Pressure 139/79 H 154/75 H Blood Pressure Mean 99 101 Pulse Ox 95 98 Oxygen Delivery Method Room Air Room Air 02/03/24 11:44 Temperature Temperature Source Pulse Rate 64 Respiratory Rate Respiratory Effort Blood Pressure 116/65 Blood Pressure Mean Pulse Ox Oxygen Delivery Method MDM <ANJEL Medeiros - Last Filed: 02/03/24 13:20> [facility] Lab Data Labs: Laboratory Results - last 24 hr 02/03/24 11:35 WBC 5.9 RBC 6.19 Hgb 17.7 H Hct 54.7 H MCV 88.4 MCH 28.6 MCHC 32.4 RDW Std Deviation 48.1 H RDW Coeff of Castro 15.0 H Plt Count 264 MPV 8.8 Immature Gran % (Auto) 0.300 Neut % (Auto) 60.8 Lymph % (Auto) 27.4 [place] % (Auto) 7.0 Eos % (Auto) 3.6 Baso % (Auto) 0.9 Absolute Neuts (auto) 3.6 Absolute Lymphs (auto) 1.61 Nucleated RBC % 0 D-Dimer Quant (PE/DVT) 0.37 Sodium 139 Potassium 3.7 Chloride 105 Carbon Dioxide 27.0 Anion Gap 7 BUN 32 H Creatinine 1.72 H Estim Creat Clear Calc 42.45 Est GFR (MDRD) Af Amer 51 L Est GFR (MDRD) Non-Af 42 L BUN/Creatinine Ratio 18.6 Glucose 103 Calcium 9.5 Troponin I High Sens 17 B-Natriuretic Peptide 10.5 Radiography Diagnostic Testing: Clinical Impression(s) from Imaging Studies Chest X-Ray 02/03/24 11:32 IMPRESSION: No acute abnormality is seen. Electronically Signed: Hardeep Jacobs MD at 12:25 EDT , EKG Sinus bradycardia: Attestation: I personally reviewed and interpreted this EKG as follows: Interpretation: Sinus Rhythm Comments: Sinus bradycardia, rate of 59 bpm, NM interval 180 ms, QRS duration 88 ms, no acute ST elevation, no acute infarct noted. Treatment and Re-Evaluation :: Differential diagnosis includes however is not limited to: ACS, NH, pulmonary embolus, muscle skeletal chest pain, cervical radiculopathy, community-acquired pneumonia Patient appears to be in no obvious respiratory distress, patient's vital signs are stable, patient looks nontoxic. Patient presents to the emergency department with complaints of left-sided chest pain that woke him up from sleep multiple times last evening. The chest pain was worse with movement and laying on his left side. Patient will receive a full cardiac workup secondary to his history of CAD, patient received 2 troponins, patient received basic laboratory values including CBC, BMP, D-dimer to rule out any pulmonary embolus. Chest x-ray will be completed. Patient be given 3 baby aspirin to equal 4 baby aspirin, patient be given 1 nitro to see if this takes his pain away at all. Patient will be reevaluated. Speaking with the patient on reevaluation, he did not receive any relief from the nitro. Patient did have a strenuous day yesterday with planting different trees. This could be secondary to muscles soreness. Patient's CBC was unremarkable, slightly hemoconcentrated with a hemoglobin of 17.7, patient's D-dimer was negative, patient's troponin was negative. Patient did have pain since last evening at 12 midnight. At this time, do not believe the patient is a second troponin. There is no evidence suspect any ACS or NH, EKG was unremarkable. This is likely muscle chest wall pain. Patient will follow-up with cardiology, he will continue to maintain hydration and see someone regarding his kidney function. All questions were answered, patient stable for discharge. <Dr. Jorge Alberto Cuevas, DO - Last Filed: 02/03/24 15:01> [facility] Narrative Medical decision making narrative: Differential diagnosis includes however is not limited to: ACS, NH, pulmonary embolus, muscle skeletal chest pain, cervical radiculopathy, community-acquired pneumonia Patient appears to be in no obvious respiratory distress, patient's vital signs are stable, patient looks nontoxic. Patient presents to the emergency department with complaints of left-sided chest pain that woke him up from sleep multiple times last evening. The chest pain was worse with movement and laying on his left side. Patient will receive a full cardiac workup secondary to his history of CAD, patient received 2 troponins, patient received basic laboratory values including CBC, BMP, D-dimer to rule out any pulmonary embolus. Chest x-ray will be completed. Patient be given 3 baby aspirin to equal 4 baby aspirin, patient be given 1 nitro to see if this takes his pain away at all. Patient will be reevaluated. Speaking with the patient on reevaluation, he did not receive any relief from the nitro. Patient did have a strenuous day yesterday with planting different trees. This could be secondary to muscles soreness. Patient's CBC was unremarkable, slightly hemoconcentrated with a hemoglobin of 17.7, patient's D-dimer was negative, patient's troponin was negative. Patient did have pain since last evening at 12 midnight. At this time, do not believe the patient is a second troponin. There is no evidence suspect any ACS or NH, EKG was unremarkable. This is likely muscle chest wall pain. Patient will follow-up with cardiology, he will continue to maintain hydration and see someone regarding his kidney function. All questions were answered, patient stable for discharge. This patient was seen with a PA/SWAHILI TEACHER Individually assessed they patient including history and physical. I have reviewed everything on the chart that is available and agree with the documentation provided by the PA/SWAHILI TEACHER including discussion about the assessment, treatment plan, discussion, and return precautions. 68-year-old male with left-sided chest pain. He does have a history of CAD. Pain is been constant since midnight. Waxes and wanes in severity. Differential as above. Lab workup ultimately unremarkable. High-sensitivity troponin within normal limits after 12 hours of pain so unlikely to be cardiac related vital signs stable he is afebrile. No believe he is delta troponin. Otherwise his lab work is fairly unremarkable with exception of slight elevation creatinine. Chest x-ray my interpretation shows no acute process. Radiology interprets this agrees. EKG sinus rhythm at 59 bpm without sign ischemic change. Lab Data Attestation: I reviewed the patient's lab results. Labs: Laboratory Results - last 24 hr 02/03/24 11:35 WBC 5.9 RBC 6.19 Hgb 17.7 H Hct 54.7 H MCV 88.4 MCH 28.6 MCHC 32.4 RDW Std Deviation 48.1 H RDW Coeff of Castro 15.0 H Plt Count 264 MPV 8.8 Immature Gran % (Auto) 0.300 Neut % (Auto) 60.8 Lymph % (Auto) 27.4 [place] % (Auto) 7.0 Eos % (Auto) 3.6 Baso % (Auto) 0.9 Absolute Neuts (auto) 3.6 Absolute Lymphs (auto) 1.61 Nucleated RBC % 0 D-Dimer Quant (PE/DVT) 0.37 Sodium 139 Potassium 3.7 Chloride 105 Carbon Dioxide 27.0 Anion Gap 7 BUN 32 H Creatinine 1.72 H Estim Creat Clear Calc 42.45 Est GFR (MDRD) Af Amer 51 L Est GFR (MDRD) Non-Af 42 L BUN/Creatinine Ratio 18.6 Glucose 103 Calcium 9.5 Troponin I High Sens 17 B-Natriuretic Peptide 10.5 Radiography Diagnostic Testing: Clinical Impression(s) from Imaging Studies Chest X-Ray 02/03/24 11:32 IMPRESSION: No acute abnormality is seen. Electronically Signed: Hardeep Jacobs MD at 12:25 EDT Reading Location ID and State: [address] [place] [address] , Service support , Discharge Plan Triage Chief Complaint: Chest Pain ED Midlevel Provider: Haseeb Blunt ED Provider: Jorge Alberto Cuevas Dx/Rx/DC Orders Clinical Impression: Acute chest wall pain, Acute renal insufficiency Instructions: ED Chest Pain, Uncertain Cause Prescriptions: No Action multivitamin [Daily Multiple] 1 EACH tablet 1 ea PO BID hydrochlorothiazide 12.5 mg capsule 12.5 mg PO DAILY losartan 100 mg tablet 100 mg PO DAILY Patient Comments: take 1 tablet by mouth once daily Eliquis 5 MG tablet 5 mg PO BID Qty: 74 0RF Rx Instructions: 10 mg twice a day for the first week. Then 5 mg twice a day. Primary Care Provider: Obed Funez Referrals: Brandyn Hunt MD [Med Staff - Active Staff] - 3-5 Days Obed Funez MD [Primary Care Provider] - Disposition Disposition: Home, Self Care
[2024-02-03 11:44] VITALS: BP 116/65; PULSE 64
[2024-02-03 11:44] LABS: Absolute Lymphocyte Count 1.61 X10^3/uL (0.83-4.51); Absolute Neutrophil Count 3.6 X10^3/uL (2.0-7.7); Basophil# 0.05 X10^3/uL; Basophil% 0.9 % (0-1); Eosinophil# 0.21 X10^3/uL; Eosinophils% 3.6 % (0-5); Hematocrit 54.7 % (40-54); Hemoglobin 17.7 g/dL (13.0-16.5); Lymphocyte # 1.61 X10^3/ul (0.83-4.51); Lymphocyte % 27.4 % (19-41); Mean Corp Hgb Conc 32.4 g/dL (32-36); Mean Corpuscular Hgb 28.6 pg (27.0-32.0); Mean Corpuscular Volume 88.4 fL (80-94); Mean Platelet Vol. 8.8 fl (6.2-12.0); Monocyte# 0.41 X10^3/uL; NRBC Flagged by Analyzer 0 % (0-5); Neutrophil # 3.58 X10^3/uL (2.7-7.7); Neutrophil % 60.8 % (47-70); Platelet Count 264 K/mm3 (150-450); RBC Distribution Width SD 48.1 fl (35.1-43.9); Red Blood Count 6.19 M/mm3 (4.6-6.2); White Blood Count 5.9 K/mm3 (4.4-11.0)
[2024-02-03] MEDS: Nitroglycerin SL (ED/IMG/CATH) 0.4 MG TABLET SL (11:44)
[2024-02-03] MEDS: Aspirin 81 MG TAB.CHEW 243 MG PO (11:45)
[2024-02-03] MEDS: 0.9% Normal Saline (1000mL) 1,000 ML 150 ML IV (11:47)
[2024-02-03 12:01] LABS: Anion Gap 7 (5-15); BUN 32 mg/dL (7-18); BUN/Creat Ratio 18.6 RATIO (10-20); Calcium,Total 9.5 mg/dL (8.5-10.1); Chloride 105 mmol/L (98-107); Creatinine, Serum 1.72 mg/dL (0.70-1.30); EST Glomerular Filtration Rate 42 mL/min (>60); Est Glom Filt Rate - Afr Amer 51 mL/min (>60); Estimated Creatinine Clearance 42.45 ml/min; Glucose 103 mg/dL (74-106); Potassium 3.7 mmol/L (3.5-5.1); Sodium Level 139 mmol/L (136-145); Troponin-I HS (w/2H Reflex) 17 pg/mL (3.0-78.0)
[2024-02-03 12:03] LABS: BNP,B-Type NATRIURETIC PEPTIDE 10.5 pg/mL (0-100)
[2024-02-03 12:04] LABS: D-Dimer Quantitative (DVT/PE) 0.37 FEU/ug/m (0.27-0.49)
[2024-02-03 13:19] VITALS: BP 127/62; PULSE 76; RESP 18; TEMP 36.6; O2SAT 98
[2024-02-03 13:41] LABS: Reflex Troponin-HS? (from REC) Y
== END 2024-02-03 13:20 | disposition home or self-care (01) ==
PROVIDERS: Nurse Practitioner; Emergency Provider Student in an Organized Health Care Education/Training Program; PCP Internal Medicine; Visit Provider Student in an Organized Health Care Education/Training Program
DX: R07.89 Other chest pain (principal); I25.10 Atherosclerotic heart disease of native coronary artery without angina pectoris; N28.9 Disorder of kidney and ureter, unspecified; I10 Essential (primary) hypertension; M79.602 Pain in left arm; Z79.01 Long term (current) use of anticoagulants; R00.1 Bradycardia, unspecified
CPT/HCPCS: 71045; 80048; 83880; 84484; 85025; 85379; 93005; 96360; 99282; J7030; A4216

== ENCOUNTER → 2024-07-09 | Outpatient (CLI) | payer MEDICARE, OTHER, SELFPAY ==
[2024-07-09 11:19] LABS: AST(SGOT) 17 U/L (15-37); Alanine Aminotransfer ALT/SGPT 27 U/L (16-61); Albumin, Serum 3.3 g/dL (3.2-5.0); Alkaline Phosphatase 68 U/L (45-117); Cholesterol 224 mg/dL (200); Globulin 4.3 g/dL (2.2-4.2); High Density Lipoprotein 57 mg/dL; Protein, Total 7.6 g/dL (6.4-8.2); Triglycerides 100 mg/dL; Very Low Density Lipoprotein 20 mg/dL (5-40)
== END | disposition home or self-care (01) ==
PROVIDERS: PCP Internal Medicine; Referring Provider Internal Medicine Cardiovascular Disease; Visit Provider Internal Medicine Cardiovascular Disease
DX: E78.5 Hyperlipidemia, unspecified (principal)
CPT/HCPCS: 36415; 80061; 80076

== ENCOUNTER → 2024-10-01 | Outpatient (CLI) | payer MEDICARE, OTHER, SELFPAY | END | disposition home or self-care (01) | LOC: CT 13:40 | PROVIDERS: PCP Internal Medicine; Referring Provider Student in an Organized Health Care Education/Training Program; Visit Provider Student in an Organized Health Care Education/Training Program | DX: M19.012 Primary osteoarthritis, left shoulder (principal) | CPT/HCPCS: 73200 ==

== ENCOUNTER 2024-10-22 08:03 | Day surgery (SDC) | payer MEDICARE, OTHER, SELFPAY ==
--- NOTE | 2024-10-01 13:48 | EKG12_ITS ---
Test Reason : PRE OP Blood Pressure : */* mmHG Vent. Rate : 57 BPM Atrial Rate : 57 BPM P-R Int : 176 ms QRS Dur : 84 ms QT Int : 414 ms P-R-T Axes : 67 93 20 degrees QTcB Int : 402 ms Sinus bradycardia Rightward axis Borderline ECG Confirmed by CHRIS MONZON, VENECIA ([id number]), editorial writer NAFISA LEPE ([id number]) on 10/02/2024 6:38:20 AM Referred By: Ruy Manzanares Confirmed By: VENECIA PEREZ MD
[2024-10-01 14:30] LABS: Absolute Lymphocyte Count 2.26 X10^3/uL (0.83-4.51); Absolute Neutrophil Count 5.9 X10^3/uL (2.0-7.7); Basophil# 0.04 X10^3/uL; Basophil% 0.4 % (0-1); Eosinophil# 0.49 X10^3/uL; Eosinophils% 5.2 % (0-5); Hematocrit 49.4 % (40-54); Hemoglobin 16.1 g/dL (13.0-16.5); Lymphocyte # 2.26 X10^3/ul (0.83-4.51); Mean Corp Hgb Conc 32.6 g/dL (32-36); Mean Corpuscular Hgb 29.5 pg (27.0-32.0); Mean Corpuscular Volume 90.6 fL (80-94); Mean Platelet Vol. 8.7 fl (6.2-12.0); Monocyte# 0.68 X10^3/uL; Monocyte% 7.2 % (0-10); NRBC Flagged by Analyzer 0 % (0-5); Neutrophil # 5.94 X10^3/uL (2.7-7.7); Platelet Count 254 K/mm3 (150-450); RBC Distribution Width CV 14.1 % (11.6-14.6); RBC Distribution Width SD 46.5 fl (35.1-43.9); Red Blood Count 5.45 M/mm3 (4.6-6.2); White Blood Count 9.4 K/mm3 (4.4-11.0)
[2024-10-01 14:52] LABS: Albumin, Serum 3.6 g/dL (3.2-5.0); Anion Gap 6 (5-15); BUN 24 mg/dL (7-18); BUN/Creat Ratio 14.3 RATIO (10-20); Calcium,Total 8.8 mg/dL (8.5-10.1); Chloride 105 mmol/L (98-107); Creatinine, Serum 1.68 mg/dL (0.70-1.30); EST Glomerular Filtration Rate 43 mL/min (>60); Est Glom Filt Rate - Afr Amer 52 mL/min (>60); Glucose 85 mg/dL (74-106); Magnesium 2.4 mg/dL (1.6-2.6); Potassium 3.9 mmol/L (3.5-5.1); Sodium Level 139 mmol/L (136-145)
[2024-10-22] VITALS (15 sets, daily range): BP systolic 143–170; BP diastolic 76–95; PULSE 57–71; RESP 14–18; TEMP 35.5–36.9; O2SAT 96–100; BMI 30.9
--- NOTE | 2024-10-22 08:16 | PCM.PRE.AN2 ---
ASA Classification* ASA Classification ASA Classification: 2 Assessment & Plan Anesthesia* Anesthesia Assessment Anesthesia Assessment: Discussed sedation and/or anesthesia options, risks, benefits, and alternatives with patient/parents/legal guardian/POA. Questions invited. The patient/parents/legal guardian/POA seems to understand and agrees to proceed with anesthesia plan. Reviewed the physical assessment, medical history, allergy history and patient home medications list prior to surgery/procedure/anesthetic and documented any changes. Performed airway and anesthesia risk assessments. Anesthesia Type Anesthesia Type: General and Block Anesthesia Focused Assessment* Airway Assessment Mouth opens: >3 cm Mallampati Score: II Focused Labs Anesthesia Preop lab: CBC WBC 9.4 K/mm3 (4.4-11.0) 10/01/24 14:07 RBC 5.45 M/mm3 (4.6-6.2) 10/01/24 14:07 Hgb 16.1 g/dL (13.0-16.5) 10/01/24 14:07 Hct 49.4 % (40-54) 10/01/24 14:07 Plt Count 254 K/mm3 (150-450) 10/01/24 14:07 CHEMISTRY Potassium 3.9 mmol/L (3.5-5.1) 10/01/24 14:07 Sodium 139 mmol/L (136-145) 10/01/24 14:07 Magnesium 2.4 mg/dL (1.6-2.6) 10/01/24 14:07 BUN 24 mg/dL (7-18) H 10/01/24 14:07 Creatinine 1.68 mg/dL (0.70-1.30) H 10/01/24 14:07 Glucose 85 mg/dL (74-106) 10/01/24 14:07 COAG Pre-Assessment Diagnosis/Proposed Procedure Planned Operative Procedure(s): (L) Total Shoulder Replacement, Reverse Anesthesia History 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 When Was Last Pacemaker Check QUESTION #4 FULL TEXT: You/Your Family Experience fever (hyperthermia) with Anesthesia Last Oral Intake Last Oral intake: Last Oral Intake NPO since Meds taken in AM with sips of water? 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 Has anyone observed you stop breathing during sleep? STOP Results Positive 09/27/24 13:29 QUESTION #5 FULL TEXT : Do you snore loudly (louder than talking or can be heard through closed doors)? 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 Specify any problems Hx of Preganancy in last 3 N/A 09/27/24 13:29 Months Nurse Filling Out Transfusion NBUCHER 09/27/24 13:29 & Questions: Date: 09/27/24 09/27/24 13:29 Time: 13:31 09/27/24 13:29 Patient unable to answer at this time (ie. 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 cellar worker Hx Now No 09/27/24 13:29 Gestational Age (in weeks): EDC: Hx Hx Para Hx Section SAB No 09/27/24 13:29 Active Medications Active Medications: Current Medications Generic Name Dose Route Start Last Admin Trade Name Freq PRN Reason Stop Dose Admin Acetaminophen 1,000 mg 10/22/24 10:25 Acetaminophen 500 Mg Tablet PO 10/22/24 10:26 X1 ONE Celecoxib 400 mg 10/22/24 10:25 Celecoxib 200 Mg Capsule PO 10/22/24 10:26 X1 ONE Dexamethasone Sodium Phosphate 10 mg 10/22/24 10:25 Dexamethasone 10 Mg/Ml Vial IV 10/22/24 10:26 X1 ONE Gabapentin 600 mg 10/22/24 10:25 Gabapentin 600 Mg Tablet PO 10/22/24 10:26 X1 ONE Lactated Ringer's 1,000 mls @ 999 mls/hr 10/22/24 10:25 IV 10/22/24 11:25 .Q1H1M TIKI Tranexamic Acid 1,000 mg/ 110 mls @ 660 mls/hr 10/22/24 10:25 Sodium Chloride IV 10/22/24 10:34 X1 ONE Lactated Ringer's 1,000 mls @ 999 mls/hr 10/22/24 10:25 IV 10/22/24 11:25 .Q1H1M TIKI Lactated Ringer's 1,000 mls @ 125 mls/hr 10/22/24 10:25 IV 10/22/24 18:24 .Q8H TIKI Lactated Ringer's 1,000 mls @ 75 mls/hr 10/22/24 10:25 IV 10/22/24 23:44 .[id number] TIKI Magnesium Sulfate 1 gm/ 102 mls @ 408 mls/hr 10/22/24 10:25 Dextrose IV 10/22/24 10:39 X1 ONE Insulin Human Lispro 1 - 6 unit 10/22/24 10:25 Insulin Lispro 100 Unit/Ml Insuln.Pen SC 10/22/24 16:30 Q4H PRN PRN BG>/= 180, SEE PROTOCOL Protocol PFSH Medical History Wears glasses Vascular disease High cholesterol Restless legs CPAP (continuous positive airway pressure) dependence Sleep apnea Non-smoker Leg cramps History of stress test History of echocardiogram Cardiology follow-up encounter Coronary artery disease Hyperlipidemia Tubular adenoma of colon Polycythemia Gross hematuria Benign prostatic hyperplasia Calculus of kidney DVT (deep venous thrombosis) KALPESH (obstructive sleep apnea) Chest pain HTN (hypertension) Home Medications ?Medication ?Instructions ?Recorded ?Last Taken ?Type multivitamin (Daily Multiple 1 ea PO BID 09/01/16 02/27/21 History tablet) hydrochlorothiazide 12.5 mg capsule 12.5 mg PO DAILY 11/26/21 Unknown History losartan 100 mg tablet 100 mg PO DAILY 11/26/21 Unknown History aspirin 81 mg tablet,delayed 81 mg PO DAILY 03/19/24 Unknown History release rosuvastatin 40 mg tablet (Crestor) 40 mg PO DAILY #30 tabs 07/10/24 Unknown Rx Allergy/AdvReac Type Severity Reaction Status Date / Time Penicillins (PCN) Allergy Anaphylaxis Verified 09/27/24 13:24 codeine AdvReac Nausea Verified 09/27/24 13:24 Family History Mother Hypertension Alzheimer's disease Father Cancer Kidney stone Brother Diabetes Hypertension Surgical History History of cardiac catheterization History of right shoulder replacement (10/21/23) History of kidney surgery History of hemorrhoidectomy History of lithotripsy History of colonoscopy Social History Smoking Status: Never smoker alcohol intake: never substance use type: does not use caffeine: No Review of Systems (Anesthesia) ROS Narrative System reviewed and no additional complaints, except as documented.
[2024-10-22] MEDS: Lactated Ringers 1,000 ML 999 ML IV (08:40)
[2024-10-22] MEDS: Magnesium 1 GM over 15 mins IV (08:50)
[2024-10-22] MEDS: Celecoxib 200 MG Capsule 400 MG PO (09:06)
[2024-10-22] MEDS: Gabapentin 600 MG Tablet PO (09:07)
[2024-10-22] MEDS: Acetaminophen 500 MG Tablet 1000 MG PO ×2 (09:07→15:19)
[2024-10-22 09:44] LABS: Bedside Glucose 109 mg/dL (74-106)
[2024-10-22] MEDS: Cefazolin 2 GM in Syringe IV (10:05)
--- NOTE | 2024-10-22 10:15 | SHO_PTH ---
PATIENT: MAX LARSON LOC: [facility] – [place] U#:[id number] AGE/SX: 69/M ROOM: RE10/22/[address]: Dr. Ruy Manzanares DO : 1955 BED: DIS: 10/22/2024 SPEC #: [id number] RECD: 10/22/24 13:14 STATUS: FROY REKapil #: [id number] ROSA: 10/22/24 10:[address]: Ruy Manzanares DEPT: SURGICAL PATHOLOGY RECD BY: Lashae Tsang ENTERED: 10/23/24 07:05 SP TYPE: HUMERUS OTHR DR: Dr. Obed Funez MD Tissues: Humerus, NOS Procedures: Decalcification bone/plaque Surgery Specimen Level IV HEADER OPERATION: Total shoulder replacement, reverse PRE-OP DIAGNOSIS: Rotator cuff insufficiency TISSUE SUBMITTED: Left humeral head MICROSCOPIC DIAGNOSIS Bone and tissue of left shoulder, total shoulder resection: Consistent with degenerative joint disease. AM:mr 10/26/2024 MICROSCOPIC DESCRIPTION Slides are reviewed. GROSS DESCRIPTION Received is one container labeled with the patient's name and designated Left humeral head. The specimen consists of a discoid fragment of montes bone measuring 5.0 x 4.5 x 2.5 cm. The articular surfaces displays eburnation and focal bone erosion. No soft tissue is identified. Flower Cheniller sections are submitted in two cassette after decalcification. / AM: 10/23/2024 TC:5 CPT: 50908, 53881
[2024-10-22] MEDS: dexAMETHasone 10 MG/ML Vial IV (10:30)
[2024-10-22] MEDS: TXA 1000mg in NS100 100ml (IVPB at Incision) 660 MG IV (10:38)
--- NOTE | 2024-10-22 11:45 | RAD_ITS ---
STUDY: X-RAY - LEFT SHOULDER REASON FOR EXAM: Male, 69 years old. Postop after replacement surgery TECHNIQUE: 2-D view(s) of the shoulder. COMPARISON: None. FINDINGS: Patient is status post left glenohumeral replacement surgery. Components demonstrate anatomic alignment. No plain film evidence of postoperative complication. Normal postoperative soft tissue swelling and subcutaneous emphysema RAD/Shoulder min 2 Views IMPRESSION: No postoperative complications noted after glenohumeral replacement surgery Electronically Signed: Prieto Mckeon MD at 13:19 EST ,
--- NOTE | 2024-10-22 12:25 | PCM.OPRPT ---
Operative Report (Standard) Operative Information Surgery/Procedure Performed: Left reverse total shoulder arthroplasty Surgeon: Ruy Manzanares Date of Procedure: 10/22/24 Procedure Start Time: 10:38 Procedure Stop Time: 11:54 Pre-Operative Diagnosis: Irreparable left shoulder rotator cuff tear Post-Operative Diagnosis: Irreparable left shoulder rotator cuff tear Select all DRAINS/GRAFTS/IMPLANTS that apply: None (See dictated op report below) Type of Anesthesia: General/Regional Estimated Blood Loss: 100 cc Fluids Replaced: Per anesthesia record Specimen collected: Yes Description of specimen(s) removed: Left humeral head Description of surgery: Surgical implants: Tornier Aequalis PerFORM+ reversed baseplate 29 mm diameter +6 mm lateralization, standard glenosphere cobalt chrome 39 mm diameter, Tornier perform inlay stem size #3, + 3 mm retentive size number 3 39 mm diameter polyethylene insert, short central post and peripheral screws x4. Surgical indications: This is a 69-year-old male with persistent left shoulder pain. He did have worsening symptoms over the last several months. X-rays revealed early rotator cuff arthropathy. MRI was obtained demonstrated a massive rotator cuff tear likely acute on chronic. I recommended a reverse shoulder arthroplasty. We obtained a preoperative CT scan for planning. The risks, benefits, alternatives the procedure was reviewed with the patient and he agreed to proceed. Risks included but were not limited to bleeding, infection, instability, loss of life or limb, risk of anesthesia, neurovascular injury, persistent pain, stiffness, prolonged immobilization, need for additional surgery, loosening of orthopedic hardware. He expressed understanding and wished to proceed with surgery. Description of procedure: Patient arrived to [facility] morning of the procedure and was greeted by the same day surgery staff. Prior to his procedure, I greeted the patient in the preoperative holding area I identified the patient by name, record number, and date of . Informed consent was confirmed. The operative extremity was marked. All questions were answered to patient satisfaction. An interscalene block was administered prior to procedure by anesthesia staff for postoperative and intraoperative analgesia. At time of his procedure, patient was brought to the operative suite and positioned supine on a standard table with a beachchair attachment. General anesthesia was induced after all bony prominences were well-padded. Endotracheal tube was placed. After adequate anesthesia and securing the tube, we prepared the patient to be positioned in the beachchair position. A well-padded packager head was applied. The nonoperative extremity was placed in a well arm brothers. He was then brought into the beachchair position after we confirmed an appropriate blood pressure. We then spun the bed 45 degrees. The operative extremity was then prepared. In the butterfly wing of the bed was removed and a well-padded torso strap was applied to secure the patient to the bed. The operative extremity was now free. We then prepped and draped the Left upper extremity in normal, sterile orthopedic fashion. We then performed a timeout with all parties in attendance in agreement with the side, site, and operation be performed. 2 g Ancef was administered prior to incision by anesthesia staff, as well as 1 g TXA IV. No concerns were voiced and we elected to proceed. I first marked a standard deltopectoral incision just lateral to the coracoid process in line with the long axis of the humerus. Skin was sharply incised with 10 blade scalpel. I then dissected bluntly through the subcutaneous layers and found the fat stripe between the deltoid and pectoralis major. The cephalic vein was then identified and protected. It was retracted laterally with the deltoid. I then bluntly dissected underneath the deltoid with a Chandler elevator. Carri retractor was placed. The upper 1 cm of the pectoralis major was released. I then identified the long head of the biceps tendon in the intertubercular groove. This was tenodesed in situ with #2 FiberWire. I then amputated the biceps proximal to the tenodesis site and followed the tendon to the supraglenoid tubercle where it was amputated. This identified the lesser and greater tuberosities. The supraspinatus was completely torn and retracted with an exposed greater tuberosity. I then performed a subscapularis peel while rotating the humerus externally. I tagged the subscapularis for possible repair later with a tagging suture. Humeral head was then dislocated anteriorly. Appropriate access to the humeral head was confirmed. I then subluxed the humeral head posteriorly with a Fukuda retractor placed around the posterior lip of the glenoid. Inferior capsule was tension. I was able to palpate the axillary nerve. Inferior capsule was then released to the 4 o'clock position of the glenoid face. 3 sided subscapularis release was performed with Bovie cautery. I then remove the Fukuda retractor and redislocated the shoulder anteriorly. I then made a anatomic neck cut of the cartilaginous surface of the humeral head. Sizing plate for a size # 3 stem was utilized to determine appropriate reaming size. A central pin was placed engaging the lateral cortex of the humerus. A size # 3 reamer was used to ream the humeral metaphysis and prepare for the inlay stem. A canal finding reamer was utilized prior to sequential broaching to a size # 3 short stem with excellent rotational and axial purchase in the humerus. I remove the broach handle left the size # [address] I then subluxed the humerus posterior to the glenoid. I then placed retractors around the posterior and anterior glenoid to expose the glenoid. Glenoid labrum was removed with Bovie cautery protecting the axillary nerve. We then used the custom guide from [employer] to position our centering pin, exiting approximately 25 mm from the joint surface along the anterior scapula. Guide was removed and pin was analyzed and compared to preoperative planning. It appeared to be in appropriate position. The Nautilus shaped reamer was then placed over top of the centering pin. I reamed a flat surface of the glenoid. We then removed the reamer and used the cannulated drill for the short central post. Post and baseplate was assembled on the back table. We then inserted the baseplate and central post the assembled baseplate to an appropriate depth with good press-fit purchase. A [place] was used to confirm depth. Peripheral screws then were placed in the peripheral holes with good purchase. The baseplate had excellent purchase and the entire scapula would rotate with rotation of the baseplate. We then impacted the 39 mm glenosphere with a standard eccentricity and tightened the locking screw mechanism. We then removed retractors and turned our attention back to the humerus. I placed a standard + 3 millimeters retentive polyethylene insert. I then reduced the shoulder. There was excellent range of motion and stability in all planes of motion. We selected this as our final size. We removed trials from the humerus after final dislocation. I copiously irrigated the canal. Broach was placed on hand and then impacted to an appropriate depth. Final + 3 mm retentive polyethylene insert was placed. Final reduction was then performed. The subscapularis was then identified with a tagging suture. Repair would have been likely under undue tension and likely failed. I elected to not perform a subscapularis repair. We then copiously irrigated the wound with sterile Betadine and normal saline solution. We reapproximated the interval with 0 Vicryl suture. Subcutaneous layers were reapproximated with 2 -0 Vicryl suture. Skin was finally running V-Loc 3-0 Monocryl suture and Dermabond. A sterile silver Mepilex dressing was applied. Patient was then placed in an ultra sling. Patient tolerated procedure well without complication. He was positioned back in the supine position extubated in the operative suite. He was transferred to the [place] and subsequently to PACU in stable condition. Need for skilled administration assistant: Teagan Edwards PA-C was critical to the outcome of the case. During the course of the procedure the physician administration assistant played a vital role. Her intimate knowledge of my steps in the procedure aided in safe and expedient completion of the procedure. The PA played a vital role in positioning particularly in obtaining the appropriate positioning. The PA was also vital in the retraction of soft tissues during the exposure and protecting vital structures. The PA was also vital and protecting soft tissues during times of bony cuts. She also played a vital role in closure with my direct supervision. The PA was also important during reduction and dislocation of the joint and trials intraoperatively. Intraoperative medications: 2 g Ancef IV, 1 g TXA IV x2 Post Operative Plan: Weightbearing: Nonweightbearing left upper extremity, okay for pendulums. Range of motion of wrist elbow and hand as tolerated. Antibiotics: 2 g Ancef IV prior to incision DVT Prophylaxis: Xarelto x 2 weeks starting postoperative day #1 due to history of DVT, early mobilization and RUKHSANA hose Lopez: None Dressing: Maintain silver dressing x5 days. 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
[2024-10-22] MEDS: Lactated Ringers 1,000 ML 125 ML IV (12:30)
--- NOTE | 2024-10-22 13:59 | PCM.POST.ANE ---
Anesthesia: Postop Eval I Current Vital Signs Temperature: 97 F Pulse Rate: 71 Blood Pressure: 146/78 Respiratory Rate: 16 Pulse Ox: 100 Oxygen Delivery Method: Venturi Mask Oxygen Flow Rate (L/min): 6 Assessment Airway patent: Yes Spontaneous unlabored respirations: Yes Mental status: Awake and Calm nausea: No Vomiting: No Anesthesia Complication: No Fluid Hydration Crystalloid volume administer (ml): 1,400 Total IV fluid infused: 1,400 Progress Note Anesthesia document: Postop Eval 1 completed: Yes
--- NOTE | 2024-10-22 14:40 | POSTOPAN2_ITS ---
Anesthesia Postop Eval I Sum Postop Eval Completion status Anesthesia document: Postop Eval 1 completed: Yes Anesthesia Postop Eval I Summary Anesthesia Postop Eval I Summary: Anesthesia Postop Eval I: Assessment Summary Airway patent Yes 10/22/24 14:00 HOUSEKEEPING [email or web address] Spontaneous unlabored Yes 10/22/24 14:00 HOUSEKEEPING [email or web address].MDOT respirations Mental status Awake,Calm 10/22/24 14:00 HOUSEKEEPING [email or web address].MDOT nausea No 10/22/24 14:00 HOUSEKEEPING [email or web address].MDOT Vomiting No 10/22/24 14:00 HOUSEKEEPING [email or web address] Anesthesia Postop Eval I: Fluid Summary Crystalloid volume administer 1,400 10/22/24 14:00 HOUSEKEEPING [email or web address].MDOT (ml) Colloids volume administered ( ml) Blood Product volume administered (ml) Total IV fluid infused 1,400 10/22/24 14:00 HOUSEKEEPING [email or web address] Anesthesia Postop Eval I: Summary Notes Anesthesia Complication No 10/22/24 14:00 HOUSEKEEPING [email or web address].[email or web address] Anesthesia Complication Comment: Post-operative progress note Anesthesia: Postop Eval II Evaluation Mental status: Awake and Calm Pain Level: 1 nausea: No Vomiting: No Complications Anesthesia Complication: No
--- NOTE | 2024-10-22 14:40 | PCM.POSTANE2 ---
Anesthesia Postop Eval I Sum Postop Eval Completion status Anesthesia document: Postop Eval 1 completed: Yes Anesthesia Postop Eval I Summary Anesthesia Postop Eval I Summary: Anesthesia Postop Eval I: Assessment Summary Airway patent Yes 10/22/24 14:00 [email or web address] Spontaneous unlabored Yes 10/22/24 14:00 BLOCKERS [email or web address] respirations Mental status Awake,Calm 10/22/24 14:00 [email or web address] nausea No 10/22/24 14:00 BLOCKERS [email or web address] Vomiting No 10/22/24 14:00 [email or web address] Anesthesia Postop Eval I: Fluid Summary Crystalloid volume administer 1,400 10/22/24 14:00 [email or web address].MDOT (ml) Colloids volume administered ( ml) Blood Product volume administered (ml) Total IV fluid infused 1,400 10/22/24 14:00 [email or web address] Anesthesia Postop Eval I: Summary Notes Anesthesia Complication No 10/22/24 14:00 [email or web address] Anesthesia Complication Comment: Post-operative progress note Anesthesia: Postop Eval II Evaluation Mental status: Awake and Calm Pain Level: 1 nausea: No Vomiting: No Complications Anesthesia Complication: No
[2024-10-22] MEDS: Cefazolin 1 GM/50 ML BAG IV (14:46)
[2024-10-22] MEDS: Ondansetron 4 MG/2 ML Vial IV (19:45)
== END 2024-10-22 19:56 | disposition home or self-care (01) ==
LOC: SDC 08:03 → AC 08:04
PROVIDERS: PCP Internal Medicine; Referring Provider Student in an Organized Health Care Education/Training Program; Visit Provider Student in an Organized Health Care Education/Training Program
PROC: (CPT 23472; principal; 2024-10-22 09:45)
DX: M75.102 Unspecified rotator cuff tear or rupture of left shoulder, not specified as traumatic (principal); I25.10 Atherosclerotic heart disease of native coronary artery without angina pectoris; I10 Essential (primary) hypertension; E78.5 Hyperlipidemia, unspecified; G47.33 Obstructive sleep apnea (adult) (pediatric); Z86.718 Personal history of other venous thrombosis and embolism; Z96.611 Presence of right artificial shoulder joint; Z87.442 Personal history of urinary calculi; I73.9 Peripheral vascular disease, unspecified; M19.012 Primary osteoarthritis, left shoulder
CPT/HCPCS: 23472; 01638; 64450; 36415; 73030; 80048; 82040; 82962; 83735; 85025; 87081; 88305; 88311; 93005; 97166; C1776; A4216; J2405; J3475

== ENCOUNTER → 2024-12-05 | Outpatient (CLI) | payer MEDICARE, OTHER, SELFPAY ==
[2024-12-05 10:43] LABS: AST(SGOT) 19 U/L (15-37); Alanine Aminotransfer ALT/SGPT 27 U/L (16-61); Albumin, Serum 3.6 g/dL (3.2-5.0); Alkaline Phosphatase 80 U/L (45-117); Anion Gap 8 (5-15); BUN 23 mg/dL (7-18); Bilirubin, Direct 0.15 mg/dL (0.00-0.30); Calcium,Total 9.1 mg/dL (8.5-10.1); Chloride 108 mmol/L (98-107); Cholesterol 166 mg/dL (200); Creatinine, Serum 1.44 mg/dL (0.70-1.30); EST Glomerular Filtration Rate 51 mL/min (>60); Est Glom Filt Rate - Afr Amer 62 mL/min (>60); Globulin 4.1 g/dL (2.2-4.2); Glucose 101 mg/dL (74-106); High Density Lipoprotein 67 mg/dL; Potassium 3.8 mmol/L (3.5-5.1); Protein, Total 7.7 g/dL (6.4-8.2); Sodium Level 140 mmol/L (136-145); Triglycerides 92 mg/dL; Very Low Density Lipoprotein 18 mg/dL (5-40)
== END | disposition home or self-care (01) ==
PROVIDERS: PCP Internal Medicine; Referring Provider Internal Medicine Cardiovascular Disease; Visit Provider Internal Medicine Cardiovascular Disease
DX: E78.00 Pure hypercholesterolemia, unspecified (principal); I10 Essential (primary) hypertension
CPT/HCPCS: 36415; 80048; 80061; 80076

== ENCOUNTER → 2025-02-05 | Outpatient (CLI) | payer MEDICARE, OTHER, SELFPAY ==
[2025-02-05 09:13] LABS: AST(SGOT) 128 U/L (<=37); Alanine Aminotransfer ALT/SGPT 54 U/L (<=46); Albumin, Serum 4.4 g/dL (3.4-4.8); Alkaline Phosphatase 57 U/L (40-129); Bilirubin, Direct 0.22 mg/dL (0.00-0.30); Cholesterol 152 mg/dL (<=200); Globulin 2.9 g/dL (2.2-4.2); High Density Lipoprotein 66 mg/dL; Low Density Lipoprotein Calc. 66 mg/dL; Protein, Total 7.3 g/dL (5.9-8.4); Total Bilirubin 0.49 mg/dL (0.00-1.30); Triglycerides 102 mg/dL; Very Low Density Lipoprotein 20 mg/dL (5-40)
== END | disposition home or self-care (01) ==
LOC: LAB 07:50
PROVIDERS: PCP Internal Medicine; Referring Provider Physician Assistant Medical; Visit Provider Physician Assistant Medical
DX: E78.00 Pure hypercholesterolemia, unspecified (principal)
CPT/HCPCS: 36415; 80061; 80076

== ENCOUNTER → 2025-02-20 | Outpatient (CLI) | payer MEDICARE, OTHER, SELFPAY ==
[2025-02-20 13:23] LABS: AST(SGOT) 26 U/L (<=37); Alanine Aminotransfer ALT/SGPT 24 U/L (<=46); Albumin, Serum 4.3 g/dL (3.4-4.8); Alkaline Phosphatase 64 U/L (40-129); Bilirubin, Direct 0.21 mg/dL (0.00-0.30); Globulin 2.8 g/dL (2.2-4.2); Protein, Total 7.1 g/dL (5.9-8.4)
== END | disposition home or self-care (01) ==
LOC: LAB 10:17
PROVIDERS: Student in an Organized Health Care Education/Training Program; PCP Internal Medicine; Referring Provider Physician Assistant Medical; Visit Provider Physician Assistant Medical
DX: E78.00 Pure hypercholesterolemia, unspecified (principal); R53.83 Other fatigue
CPT/HCPCS: 36415; 80076; 84443

== ENCOUNTER → 2025-05-29 | Outpatient (CLI) | payer MEDICARE, OTHER, SELFPAY ==
[2025-05-29 12:45] LABS: AST(SGOT) 28 U/L (<=37); Alanine Aminotransfer ALT/SGPT 27 U/L (<=46); Albumin, Serum 4.4 g/dL (3.4-4.8); Alkaline Phosphatase 67 U/L (40-129); Bilirubin, Direct 0.26 mg/dL (0.00-0.30); Cholesterol 130 mg/dL (<=200); Globulin 3.1 g/dL (2.2-4.2); Low Density Lipoprotein Calc. 63 mg/dL; Triglycerides 74 mg/dL; Very Low Density Lipoprotein 15 mg/dL (5-40); cholesterol:hdl ratio screen 2.51
== END | disposition home or self-care (01) ==
LOC: LAB 11:08
PROVIDERS: PCP Internal Medicine; Referring Provider Student in an Organized Health Care Education/Training Program; Visit Provider Student in an Organized Health Care Education/Training Program
DX: E78.5 Hyperlipidemia, unspecified (principal)
CPT/HCPCS: 36415; 80061; 80076

== ENCOUNTER → 2025-06-07 | Outpatient (CLI) | payer MEDICARE, OTHER, SELFPAY ==
--- NOTE | 2025-06-07 13:03 | ART_ITS ---
Reason For Study Reason For Study: Claudication Procedure A bilateral lower extremity continuous wave Doppler with analog waveform analysis,segmental pressures,and ankle brachial indexes without exercise. Left Segmental Pressures Left brachial= 130mmHg. Left posterior tibial artery = 141mmHg. Left dorsalis pedis artery = 135mmHg. Left digit = 109 mmHg. The left dorsalis pedis waveforms are triphasic. The left posterior tibial artery waveforms are triphasic. Right Segmental Pressures Right brachial= 133mmHg. Right posterior tibial artery = 143mmHg. Right dorsalis pedis artery = 135mmHg. Right digit = 103 mmHg. The right dorsalis pedis waveforms are triphasic. The right posterior tibial artery waveforms are triphasic. Indices The right ankle brachial index by the dorsalis pedis is 1.02. The right ankle brachial index by the posterior tibial artery is 1.08. The right digital-brachial index is 0.77. The left ankle brachial index by the dorsalis pedis is 1.02. The left ankle brachial index by the posterior tibial artery is 1.06. The left post exercise ankle brachial index is 0.82. VL/Lower Ext Art Exam w/o Exercis Interpretation Summary Right TIP 1.08, normal. TBI and Doppler/PVR waveforms of the right leg normal a t rest. Left TIP 1.06, normal. TBI and Doppler/PVR waveforms of the left leg normal at rest. Ordering Physician: Milagros Park Referring Physician: Obed Funez M.D. Performed By: Tammy Mayer RVT
== END | disposition home or self-care (01) ==
LOC: CVS 12:58
PROVIDERS: PCP Internal Medicine; Referring Provider Physician Assistant Medical; Visit Provider Physician Assistant Medical
DX: I73.9 Peripheral vascular disease, unspecified (principal)
CPT/HCPCS: 93923